=== PATIENT | female | born 1965 | race African-American/Black ===

== ENCOUNTER 2017-02-09 14:26 | Emergency (ER) | payer BC ==
[~2017-02-09 14:26] MED LIST: ALBUTEROL17 GM INH; BENZONATATE PO; GLUCOPHAGE500 MG PO; IBUPROFEN800 MG PO; PRILOSEC40 MG PO; PROTONIX PO; TOVIAZ8 MG PO; TRADJENTA5 MG PO; VOLTAREN50 MG PO; XANAX0.5 MG PO; ZESTRIL10 MG PO
[2017-02-09] MEDS ORDERED: AZOR 10-20 MG1 EACH (14:49)
[2017-02-09] MEDS ORDERED: GLUCOTROL (14:49)
[2017-02-09] MEDS ORDERED: LIPITOR40 MG (14:49)
[2017-02-09] MEDS ORDERED: ZESTRIL5 MG (14:49)
[2017-02-09] MEDS ORDERED: CAPOZIDE (14:49)
[2017-02-09 15:31] LABS: BASOPHIL# 0.1 X10e3 (0-0.3); BASOPHIL% 0.9 % (0-2.5); DIFF IND NO; EOSINOPHIL# 0.1 X10e3 (0-0.7); EOSINOPHIL% 0.4 % (0.0-7.0); HEMATOCRIT 35.2 % (35.0-45.0); HEMOGLOBIN 11.9 gm/dL (12.0-16.0); LYMPHOCYTE# 3.2 X10e3 (1.0-3.5); LYMPHOCYTE% 26.1 % (17.0-45.0); MEAN CELL VOLUME 101.7 FL (83-96); MEAN CORPUSCULAR HEMOGLOBIN 34.4 PG (28-34); MEAN CORPUSCULAR HGB CONC 33.8 g/dL (30-36); MEAN PLATELET VOLUME 8.4 FL (6.5-11.5); MICRO INDICATED? NO; MONOCYTE# 0.7 X10e3 (0-1.0); MONOCYTE% 5.9 % (3.0-12.0); NEUTROPHIL# 8.3 X10e3 (1.5-7.1); NEUTROPHIL% 66.7 % (40-75); PLATELET COUNT 327 X10e3 (140-420); RED BLOOD COUNT 3.46 X10e (3.90-5.30); RED CELL DISTRIBUTION WIDTH 12.3 % (11.0-15.5); URINE APPEARANCE HAZY; URINE BILIRUBIN NEG (NEG); URINE BLOOD NEG (NEG); URINE COLOR YELLOW; URINE GLUCOSE NEG (NORM); URINE KETONE NEG (NEG); URINE LEUKOCYTE ESTERASE NEG (NEG); URINE NITRATE NEG (NEG); URINE PH 5.5 (5-8); URINE PROTEIN NEG (NEG); URINE SOURCE CLEAN CATCH; URINE SPECIFIC GRAVITY 1.025 (1.003-1.035); WHITE BLOOD COUNT 12.4 X10e3 (4.0-10.5)
[2017-02-09 15:48] LABS: ALBUMIN SERUM 4.6 g/dL (3.5-5.0); BILIRUBIN, DIRECT 0.1 mg/dL (0.0-0.2); BILIRUBIN,INDIRECT 0.5 mg/dL (0.0-0.9); BILIRUBIN,TOTAL 0.6 mg/dL (0.2-2.0); BUN/CREATININE RATIO 13.84; CREATININE SERUM 1.3 mg/dL (0.6-1.4); GLOM FILT RATE Estimated 55.4 mL/min (>60); PROTEIN TOTAL SERUM 8.7 g/dL (6.0-8.3)
[2017-02-09 15:49] LABS: POTASSIUM 2.8 mmol/L (3.5-5.1)
[2017-02-09 16:28] LABS: POC - CKMB <1.0 ng/mL (0.0-7.9); POC - TROPONIN <0.05 ng/mL (<=0.05)
== END 2017-02-09 17:22 | disposition home or self-care (01) ==
LOC: SED 14:26
PROVIDERS: Emergency Medicine
DX: E11.65 Type 2 diabetes mellitus with hyperglycemia (principal); E87.6 Hypokalemia; E11.9 Type 2 diabetes mellitus without complications; I10 Essential (primary) hypertension; Z90.710 Acquired absence of both cervix and uterus; Z88.0 Allergy status to penicillin; Z91.040 Latex allergy status; Z79.899 Other long term (current) drug therapy
CPT/HCPCS: 36415; 80048; 80076; 81003; 82553; 82947; 84484; 85025; 96361; 96374; 96375; 99283; J2765